=== PATIENT | female | born 1995 | race American Indian/Alaskan Native ===

== ENCOUNTER 2021-06-06 18:58 | Outpatient (CLI) | payer OTHER ==
[2021-06-06 19:54] VITALS: BP 110/58
--- NOTE | 2021-06-06 21:21 | Ultrasound Report ---
Limited obstetrical ultrasound INDICATION: Assessment of amniotic fluid, gestational age, cervix, weight, placenta COMPARISON: None FINDINGS: Intrauterine is seen in a cephalic position. Cardiac activity was documented with heart rate of 151 bpm period placenta is posterior and free of the internal cervical os. Amnio tic fluid volume appears qualitatively within normal limits and MIKAELA is within normal limits at 18.3 c m. Cervix is closed and cervical length is measured at 3.1 cm.: Survey was not performed but no obvio us abnormalities are noted. Estimated gestational age is 24 weeks 6 days. Clinical gestational age is not known. Estimated weight is 700 g +/- 104 g. BIOPHYSICAL PROFILE breathing movements: 2/2 movements: 2/2 posture and tone tone: 2/2 Qualitative amniotic fluid volume: 2/2 Total score: 8/8, within normal limits Signer Name: Kennedy Rushing MD Signed: 06/06/2021 9:17 PM Workstation Name: [id number]
== END 2021-06-06 21:33 | disposition home or self-care (01) ==
LOC: TRG 18:58 → APU 19:00 → TRG 21:33 → APU 22:59
PROVIDERS: ATTEND Obstetrics & Gynecology
DX: O26.899 Other specified pregnancy related conditions, unspecified trimester (principal); R10.9 Unspecified abdominal pain; Z3A.00 Weeks of gestation of pregnancy not specified
CPT/HCPCS: 59025; 76816; 76819

== ENCOUNTER 2021-09-19 01:46 | Inpatient (IN) | payer OTHER ==
[2021-09-19] MEDS ORDERED: miSOPROStol 200 MCG TAB PR PRN (02:14)
[2021-09-19] MEDS ORDERED: ONDANSETRON 4 MG/2 ML INJ IV PRN ×2 (02:14→10:00)
[2021-09-19] MEDS ORDERED: MINERAL OIL 30 ML ORAL LIQD PO PRN (02:14)
[2021-09-19] MEDS ORDERED: METHYLERGONOVINE MALEATE 0.2 MG/ML VIAL IM PRN ×2 (02:14→10:00)
[2021-09-19] MEDS ORDERED: CARBOPROST TROMETHAMINE 250 MCG/1 ML INJ IM PRN ×2 (02:14→10:00)
[2021-09-19] MEDS ORDERED: BUTORPHANOL 2 MG/1 ML INJ IV PRN ×4 (02:14→08:26)
[2021-09-19] MEDS ORDERED: AMPICILLIN/NS 2 GM/100 ML 2 GM/100 ML BAG IV ONE (02:14)
[2021-09-19] MEDS ORDERED: fentaNYL 100 MCG/2 ML INJ IV PRN ×2 (02:14→08:26)
[2021-09-19] MEDS ORDERED: ePHEDrine SULFATE 50 MG/1 ML INJ IV PRN ×2 (02:14→03:50)
[2021-09-19] MEDS ORDERED: LOPERAMIDE 2 MG CAP PO PRN ×2 (02:14→10:00)
[2021-09-19] MEDS ORDERED: OXYTOCIN 10 UNIT/1 ML INJ IM PRN (02:14)
[2021-09-19] MEDS ORDERED: ACETAMINOPHEN 325 MG TAB PO PRN ×3 (02:14→10:00)
[2021-09-19] MEDS ORDERED: TERBUTALINE 1 MG/1 ML INJ SUB-Q PRN ×2 (02:14→10:00)
[2021-09-19] MEDS ORDERED: LIDOCAINE (2%) 20 MG/1 ML VIAL 20 ML MDV INFILTRATI ONE (02:14)
[2021-09-19] MEDS ORDERED: LACTATED RINGERS 1,000 ML IV SCH ×2 (02:15→08:30)
[2021-09-19] MEDS ORDERED: OXYTOCIN DRIP 30 UNITS/500 ML BAG IV SCH ×2 (03:00)
[2021-09-19 03:09] LABS: Hemoglobin 11.1 gm/dl (10.1-14.3); Mean Corpuscular HGB Conc 33 % (30-34); Mean Corpuscular Volume 91 fl (79-97); Platelet Count 192 K/mm3 (140-440); Red Blood Count 3.73 M/mm3 (3.65-5.03); Red Cell Distribution Width 14.5 % (13.2-15.2)
[2021-09-19] MEDS ORDERED: NALOXONE 2 MG/2 ML INJ IV PRN (03:50)
[2021-09-19] MEDS ORDERED: fentaNYL-BUPIV 2 MCG/ML-0.125% 200 MCG/100 ML BAG EPIDURAL SCH (04:00)
--- NOTE | 2021-09-19 04:42 | Anesthesia Consultation ---
Anesthesia Consult and Med Hx Date of service: 09/19/21 - Airway Anesthetic Teeth Evaluation: Poor Mental/Hyoid Distance: Adequate Mallampati Class: Class II Intubation Access Assessment: Good - Pulmonary Exam CTA: Yes - Cardiac Exam Cardiac Exam: RRR - Pre-Operative Health Status ASA Pre-Surgery Classification: ASA2 Proposed Anesthetic Plan: Epidural - Pulmonary Hx Smoking: No Hx Asthma: No Hx Respiratory Symptoms: No SOB: No COPD: No Home Oxygen Therapy: No Hx Pneumonia: No Hx Sleep Apnea: No - Cardiovascular System Hx Hypertension: No Hx Coronary Artery Disease: No Hx Heart Attack/AMI: No Hx Angina: No Hx Percutaneous Transluminal Coronary Angioplasty (PTCA): No Hx Cardia Arrhythmia: No Hx Pacemaker: No Hx Internal Defibrillator: No Hx Valvular Heart Disease: No Hx Heart Murmur: No Hx Peripheral Vascular Disease: No - Central Nervous System Hx Neuromuscular Disorder: No Hx Seizures: No CVA: No Hx Back Pain: Yes Hx Psychiatric Problems: No - Gastrointestinal Hx Ulcer: No Hx Gastroesophageal Reflux Disease: No - Endocrine Hx Renal Disease: No Hx End Stage Renal Disease: No Hx Cirrhosis: No Hx Liver Disease: No Hx Insulin Dependent Diabetes: No Hx Non-Insulin Dependent Diabetes: No Hx Thyroid Disease: No Hx Hypothyroidism: No Hx Hyperthyroidism: No - Hematic Hx Anemia: No Hx Sickle Cell Disease: No - Other Systems Hx Alcohol Use: No Hx Substance Use: No Hx Cancer: No Hx Obesity: Yes
--- NOTE | 2021-09-19 04:43 | Progress Note ---
Labor Epidural - Labor Epidural Start Time: 04:11 Stop Time: 04:13 Performed by:: BRITTANI ROCHA Procedure: Patient is requesting a laboring epidural for laboring pain. Patient IDed, H&P reviewed, all questions and concerns were answered, and consent was signed. Timeout was performed at bedside. Patient in sitting position. Sterile prep and drape was performed. [3] ml of 1% lidocaine skin wheal at L[3]- L [4]. 17- gauge Tuohy epidural needle was advanced to loss of resistance with saline technique 7cm. Negative CSF negative blood. Epidural catheter advanced to [10] centimeters. [NEGATIVE] Aspiration [NEGATIVE] test dose. Sterile dressing applied. Patient tolerated procedure.
--- NOTE | 2021-09-19 09:02 | History and Physical Report ---
History of Present Illness Date of examination: 09/19/21 Date of admission: 09/19/21 02:14 Chief complaint: CTX History of present illness: 26 y/o at 40-5/7 weeks presents to OB ED reporting CTX. No VB or LOF. Good FM. In OB ED, SOO wsa 4 cm dilated. She is GBS (+). 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 Family/Genetic History: none Social history: no significant social history - Obstetrical History Expected Date of Delivery: 09/14/21 Actual Gestation: 40 Week(s) 5 Day(s) : 2 Para: 1 Medications and Allergies Allergies Allergy/AdvReac Type Severity Reaction Status Date / Time No Known Allergies Allergy Unverified 06/06/21 19:53 Home Medications Medication Instructions Recorded Confirmed Last Taken Type No Known Home Medications [No 06/06/21 06/06/21 Unknown History Reported Home Medications] Active Meds: Active Medications Acetaminophen (Acetaminophen 325 Mg Tab) 650 mg PO Q4H PRN PRN Reason: Pain, Mild (1-3) Butorphanol Tartrate (Butorphanol 2 Mg/1 Ml Inj) 1 mg IV Q2H PRN PRN Reason: Pain, Moderate(4-6) LABOR PAIN Butorphanol Tartrate (Butorphanol 2 Mg/1 Ml Inj) 2 mg IV Q2H PRN PRN Reason: Pain , Severe (7-10) Carboprost Tromethamine (Carboprost Tromethamine 250 Mcg/1 Ml Inj) 250 mcg IM ONCE PRN PRN Reason: Uterine Bleeding Carboprost Tromethamine (Carboprost Tromethamine 250 Mcg/1 Ml Inj) 250 mcg IM ONCE PRN PRN Reason: Uterine Bleeding Ephedrine Sulfate (Ephedrine Sulfate 50 Mg/1 Ml Inj) 10 mg IV Q2M PRN PRN Reason: Hypotension Fentanyl (Fentanyl 100 Mcg/2 Ml Inj) 100 mcg IV Q2H PRN PRN Reason: Pain,Severe (7-10) LABOR PAIN Last Admin: 09/19/21 02:53 Dose: 100 mcg Documented by: Oxytocin/Sodium Chloride (Pitocin/Ns 30 Unit/500ml) 30 units in 500 mls @ 2 mls/hr IV TITR RENE; Protocol Lactated Ringer's (Lactated Ringers) 1,000 mls @ 125 mls/hr IV DIRECT RENE Last Admin: 09/19/21 02:54 Dose: 125 mls/hr Documented by: Oxytocin/Sodium Chloride (Pitocin/Ns 30 Unit/500ml) 30 units in 500 mls @ 40 mls/hr IV TITR RENE; Protocol Fentanyl/Bupivacaine/Sodium Chlor (Fentanyl-Bupiv 2 Mcg/Ml-0.125%) 200 mcg in 100 mls @ 12 mls/hr EPIDURAL TITR RENE; Protocol Lactated Ringer's (Lactated Ringers) 1,000 mls @ 125 mls/hr IV DIRECT RENE Lidocaine (Lidocaine (2%) 20 Mg/1 Ml Vial 20 Ml Mdv) 20 ml INFILTRATI ONCE ONE Stop: 09/19/21 08:27 Loperamide HCl (Loperamide 2 Mg Cap) 2 mg PO ONCE PRN PRN Reason: give with Hemabate Loperamide HCl (Loperamide 2 Mg Cap) 2 mg PO ONCE PRN PRN Reason: give with Hemabate Methylergonovine Maleate (Methylergonovine Maleate 0.2 Mg/Ml Vial) 0.2 mg IM ONCE PRN PRN Reason: Uterine Bleeding Methylergonovine Maleate (Methylergonovine Maleate 0.2 Mg/Ml Vial) 0.2 mg IM ONCE PRN PRN Reason: Uterine Bleeding Mineral Oil (Mineral Oil 30 Ml Oral Liqd) 30 ml PO QHS PRN PRN Reason: Constipation Misoprostol (Misoprostol 200 Mcg Tab) 800 mcg NC ONCE PRN PRN Reason: Uterine Bleeding Nalbuphine HCl (Nalbuphine 10 Mg/1 Ml Inj) 10 mg IV Q2H PRN PRN Reason: Pain, Moderate (4-6) Naloxone HCl (Naloxone 2 Mg/2 Ml Inj) 0.2 mg IV Q5M PRN PRN Reason: Respiratory sedation Ondansetron HCl (Ondansetron 4 Mg/2 Ml Inj) 4 mg IV Q8H PRN PRN Reason: Nausea And Vomiting Oxytocin (Oxytocin 10 Unit/1 Ml Inj) 10 unit IM ONCE PRN PRN Reason: Uterine Bleeding Terbutaline Sulfate (Terbutaline 1 Mg/1 Ml Inj) 0.25 mg SUB-Q ONCE PRN PRN Reason: Hyperstimulation/Hypertonicity Terbutaline Sulfate (Terbutaline 1 Mg/1 Ml Inj) 0.25 mg SUB-Q ONCE PRN PRN Reason: Hyperstimulation/Hypertonicity Review of Systems All systems: negative - Vital Signs Vital signs: Vital Signs Temp Pulse Resp BP Pulse Ox 99.1 F 80 12 124/62 100 09/19/21 01:54 09/19/21 01:54 09/19/21 01:54 09/19/21 01:54 09/19/21 01:54 Temp Pulse Resp BP Pulse Ox 99.1 F 82 12 104/53 100 09/19/21 01:54 09/19/21 08:56 09/19/21 01:54 09/19/21 08:53 09/19/21 08:56 - Physical Exam Breasts: Positive: normal Cardiovascular: Regular rate Lungs: Positive: Normal air movement Abdomen: Positive: normal appearance Genitourinary (Female): Positive: normal external genitalia Vulva: both: normal Vagina: Positive: normal moisture Uterus: Positive: enlarged Adnexa: both: normal Anus/Rectum: Positive: normal perianal skin Extremities: Positive: normal - Obstetrical FHR: category 1 Uterine Contraction Monitor Mode: Palpation Cervical Dilatation: 4 Results Result Diagrams: 09/19/21 02:36 All other labs normal. Assessment and Plan - Patient Problems (1) Active labor at term Current Visit: Yes Status: Acute Plan to address problem: Admit to L&D. AROM when possible. I expect .
--- NOTE | 2021-09-19 09:04 | Procedure Note ---
OB Delivery Note - Delivery Date of Delivery: 09/19/21 Surgeon: ANN INGRAM Estimated blood loss: 500cc - Vaginal Delivery position: OA Intrapartum events: none Delivery augmentation: rupture of membranes Delivery monitor: external FHT Route of delivery: Delivery cord: nuchal cord Delivery laceration: 2nd degree Delivery repair: vicryl Anesthesia: epidural - Infant A at 1 minute: 9 at 5 minutes: 9 Infant Gender: Male
[2021-09-19 09:55] LABS: Hematocrit 33.5 % (30.3-42.9); Hemoglobin 10.6 gm/dl (10.1-14.3); Mean Corpuscular HGB Conc 32 % (30-34); Mean Corpuscular Volume 92 fl (79-97); Platelet Count 182 K/mm3 (140-440); Red Blood Count 3.64 M/mm3 (3.65-5.03); Red Cell Distribution Width 14.1 % (13.2-15.2)
[2021-09-19] MEDS ORDERED: diphenhydrAMINE 25 MG CAP PO PRN (10:00)
[2021-09-19] MEDS ORDERED: WITCH HAZEL/ GLYCERIN PAD TP PRN (10:00)
[2021-09-19] MEDS ORDERED: LANOLIN/ZINC/DIMETHICONE (LANSINOH) 7 GM TP PRN (10:00)
[2021-09-19] MEDS ORDERED: PROMETHAZINE 25 MG RECT SUPP PR PRN (10:00)
[2021-09-19] MEDS ORDERED: LIDOCAINE (2%) 20 MG/1 ML VIAL 20 ML MDV INFILTRATI SCH (10:00)
[2021-09-19] MEDS ORDERED: HYDROcodone/ACETAMINOPHEN 5-325 MG TAB PO PRN (10:00)
[2021-09-19] MEDS ORDERED: PROMETHAZINE 25 MG TAB PO PRN (10:00)
[2021-09-19] MEDS ORDERED: NalbUPHINE 10 MG/1 ML INJ IV PRN (10:00)
--- NOTE | 2021-09-19 11:38 | Post Anesthesia Evaluation ---
- Post Anesthesia Evaluation Patient Participated: Yes Airway Patent: Yes Stable Respiratory Function: Yes Nausea/Vomiting: No Temp > 96.8F: Yes Pain Manageable: Yes Adequeate Hydration: Yes Anesthesia Complications: No Block Receding Appropriately: Yes Patient on Ventilator: No
[2021-09-19] MEDS: IBUPROFEN 600 MG TAB PO SCH (15:02)
[2021-09-19] MEDS ORDERED: MAGNESIUM HYDROXIDE (MOM) ORAL LIQD UDC PO PRN (22:00)
[2021-09-20] MEDS: IBUPROFEN 600 MG TAB PO SCH ×4 (00:10→21:35)
--- NOTE | 2021-09-20 06:03 | Progress Note ---
Assessment and Plan PPD#1 doing well 1. Routine care 2. Discharge pt home tomorrow. Subjective Date of service: 09/20/21 Principal diagnosis: PPD#1 Interval history: Pt has no complaints. Vag bleed less than a period. Pt is bottle feeding. Pt voids without difficulty Objective - Constitutional Vitals: Vital Signs - 12hr 09/19/21 09/19/21 09/19/21 19:15 22:02 23:30 Temperature 98.6 F Pulse Rate 76 Respiratory 18 Rate Blood Pressure 109/70 O2 Sat by Pulse 99 Oximetry O2 Sat by Pulse 98 98 Oximetry [ Anterior Bilateral] 09/20/21 01:01 Temperature 98.6 F Pulse Rate 92 H Respiratory 18 Rate Blood Pressure 118/74 O2 Sat by Pulse 98 Oximetry O2 Sat by Pulse Oximetry [ Anterior Bilateral] General appearance: Present: no acute distress - Respiratory Respiratory effort: normal - Breasts Breasts: normal Extremities: No edema - Gastrointestinal General gastrointestinal: Present: soft, non-tender - Genitourinary Female genitourinary: other (Fundus 1cm below umbilicus, non-tender; lochia small) - Neurologic Neurologic: moves all extremities - Psychiatric Psychiatric: cooperative - Labs CBC & Chem 7: 09/19/21 09:06 Labs: Abnormal lab results 09/19/21 Range/Units 09:06 WBC 13.2 H (4.5-11.0) K/mm3 RBC 3.64 L (3.65-5.03) M/mm3 Medications & Allergies - Medications Allergies/Adverse Reactions: Allergies No Known Allergies Allergy (Unverified 06/06/21 19:53) Home Medications: Home Medications Medication Instructions Recorded Confirmed Last Taken Type No Known Home Medications [No 06/06/21 06/06/21 Unknown History Reported Home Medications] Active Medications: Generic Name Dose Route Start Last Admin Trade Name Freq PRN Reason Stop Dose Admin Acetaminophen 650 mg 09/19/21 10:00 Acetaminophen 325 Mg Tab PO Q4H PRN Pain MILD(1-3)/Fever >100.5/BARRAZA Hydrocodone Bitart/Acetaminophen 2 each 09/19/21 10:00 09/19/21 17:11 Hydrocodone/Acetaminophen 5-325 Mg Tab PO 2 each Q6H PRN Administration Pain, Moderate (4-6) Bisacodyl 10 mg 09/19/21 10:00 Bisacodyl 10 Mg Rect Supp [place] BID PRN Constipation Carboprost Tromethamine 250 mcg 09/19/21 10:00 Carboprost Tromethamine 250 Mcg/1 Ml Inj IM ONCE PRN Uterine Bleeding Diphenhydramine HCl 25 mg 09/19/21 10:00 Diphenhydramine 25 Mg Cap PO Q6H PRN Itching Ephedrine Sulfate 10 mg 09/19/21 02:14 Ephedrine Sulfate 50 Mg/1 Ml Inj IV Q2M PRN Hypotension Oxytocin/Sodium Chloride 30 units in 500 mls @ 40 mls/hr 09/19/21 03:00 Pitocin/Ns 30 Unit/500ml IV TITR [facility] Protocol Fentanyl/Bupivacaine/Sodium Chlor 200 mcg in 100 mls @ 12 mls/hr 09/19/21 04:00 Fentanyl-Bupiv 2 Mcg/Ml-0.125% EPIDURAL TITR [facility] Protocol Lactated Ringer's 1,000 mls @ 125 mls/hr 09/19/21 08:30 Lactated Ringers IV DIRECT RENE Ibuprofen 600 mg 09/19/21 10:00 09/20/21 00:10 Ibuprofen 600 Mg Tab PO 600 mg Q6H RENE Administration Lidocaine 20 ml 09/19/21 10:00 Lidocaine (2%) 20 Mg/1 Ml Vial 20 Ml Mdv INFILTRATI 09/20/21 09:59 ONCE@1000 RENE Loperamide HCl 2 mg 09/19/21 10:00 Loperamide 2 Mg Cap PO ONCE PRN give with Hemabate Magnesium Hydroxide 30 ml 09/19/21 22:00 Magnesium Hydroxide (Mom) Oral Liqd Udc PO HS PRN Constipation Methylergonovine Maleate 0.2 mg 09/19/21 10:00 Methylergonovine Maleate 0.2 Mg/Ml Vial IM ONCE PRN Uterine Bleeding Misoprostol 800 mcg 09/19/21 02:14 Misoprostol 200 Mcg Tab [place] ONCE PRN Uterine Bleeding Multi-Ingredient Ointment 1 applic 09/19/21 10:00 Lanolin/Zinc/Dimethicone (Lansinoh) 7 Gm TP PRN PRN Sore Nipples Naloxone HCl 0.2 mg 09/19/21 03:50 Naloxone 2 Mg/2 Ml Inj IV Q5M PRN Respiratory sedation Ondansetron HCl 4 mg 09/19/21 10:00 Ondansetron 4 Mg/2 Ml Inj IV Q8H PRN Nausea And Vomiting Oxytocin 10 unit 09/19/21 02:14 Oxytocin 10 Unit/1 Ml Inj IM ONCE PRN Uterine Bleeding Promethazine HCl 25 mg 09/19/21 10:00 Promethazine 25 Mg Rect Supp [place] Q6H PRN Nausea And Vomiting Promethazine HCl 25 mg 09/19/21 10:00 Promethazine 25 Mg Tab PO Q6H PRN Nausea And Vomiting Sodium Chloride 10 ml 09/19/21 10:00 Sodium Chloride 0.9% 10 Ml Flush Syringe IV PRN PRN flush Witch Sheyla/Glycerin 1 each 09/19/21 10:00 Witch Sheyla/ Glycerin Pad TP PRN PRN Hemorrhoid/cleansing/soothing
[2021-09-20] MEDS ORDERED: FLU VACC QUAD 2021-22(6MOS UP)/PF 60 MCG/0.5 ML SYRINGE IM ONE (12:00)
[2021-09-21] MEDS: IBUPROFEN 600 MG TAB PO SCH ×2 (04:20→10:40)
--- NOTE | 2021-09-21 10:34 | Progress Note ---
Assessment and Plan A: day 2 S/P . P: Discharge patient home today. Discussed with patient discharge instructions and warning signs. Advised patient to continue to take her vitamins and iron supplements at home. Advised patient to avoid intercourse, lifting, housework, driving. Advised patient to follow up at [facility] office in 6 weeks. Patient voiced uderstanding of all instructions. Subjective - Subjective Date of service: 09/21/21 Principal diagnosis: PPD#2 Interval history: Patient desires discharge home today. Patient reports: appetite normal, voiding normally, pain well controlled, flatus, no dizzy ambulation [place]: doing well Objective - Vital Signs Latest vital signs: Vital Signs Temp Pulse Resp BP Pulse Ox Pulse Ox 09/21/21 08:41 98.2 F 88 18 121/53 98 09/21/21 02:34 97.8 F 80 16 116/71 100 09/20/21 21:30 100 09/20/21 16:35 98 09/20/21 16:27 98.3 F 77 18 113/64 100 09/20/21 14:30 98 09/20/21 12:30 98 Intake and Output 09/20/21 09/21/21 09/21/21 23:59 07:59 15:59 Intake Total 360 200 Balance 360 200 Intake: Oral 200 Intake, Free Water 360 Other: Total, Intake Amount 200 # Voids Void 3 2 1 - Exam Cardiovascular: Present: Regular rate Lungs: Present: Clear to auscultation Abdomen: Present: normal appearance, soft, normal bowel sounds. Absent: distention, tenderness, guarding, rigidity Uterus: Present: normal, firm, other (Fundus firm at 1 FB below umbilicus). Absent: bogginess, tenderness Extremities: Absent: tenderness, edema
--- NOTE | 2021-09-21 10:39 | Discharge Summary ---
Providers - Providers Date of Admission: 09/19/21 02:14 Date of discharge: 09/21/21 Attending physician: ANN INGRAM MD Primary care physician: ANN INGRAM MD Hospitalization Reason for admission: active labor Delivery: Laceration: 2nd degree Other procedures: none complications: none Discharge diagnosis: IUP at term delivered [place] baby: male Pertinent studies: Labs Hospital course: Uncomplicated hospital course Condition at discharge: Good Disposition: 01 HOME / SELF CARE / HOMELESS - Discharge Diagnoses (1) Term delivered Status: Acute Plan - Provider Discharge Summary Activity: routine, no sex for 6 weeks, no heavy lifting 4 weeks, no strenuous exercise Diet: routine Instructions: routine Additional instructions: Continue taking your vitamin and iron supplements at home. Follow up at [facility] office in 6 weeks. Call your doctor immediately for: * Fever > 100.5 * Heavy vaginal bleeding ( >1 pad per hour) * Severe persistent headache * Shortness of breath * Reddened, hot, painful area to leg or breast - Follow up plan Follow up: PRIMARY CARE, [Referring] - 6 Weeks
[2021-09-21 17:05] VITALS: BP 121/77
== END 2021-09-21 16:45 | disposition home or self-care (01) | DRG 807 ==
LOC: TRG 01:46 → APU 01:58 → OBSVTOIN 02:14 → LD 02:14 → TRG 02:14 → LD 02:24 → OB 10:38
PROVIDERS: ADMIT Obstetrics & Gynecology Gynecology; ATTEND Obstetrics & Gynecology Gynecology
PROC: 10E0XZZ Delivery of Products of Conception, External Approach (ICD-10-PCS; principal; 2021-09-19)
PROC: 0KQM0ZZ Repair Perineum Muscle, Open Approach (ICD-10-PCS; 2021-09-19)
PROC: 3E0R3BZ Introduction of Anesthetic Agent into Spinal Canal, Percutaneous Approach (ICD-10-PCS; 2021-09-19)
PROC: 00HU33Z Insertion of Infusion Device into Spinal Canal, Percutaneous Approach (ICD-10-PCS; 2021-09-19)
DX: O69.81X0 Labor and delivery complicated by cord around neck, without compression, not applicable or unspecified (principal); Z37.0 Single live birth; Z3A.40 40 weeks gestation of pregnancy; O99.824 Streptococcus B carrier state complicating childbirth; Z20.822 Contact with and (suspected) exposure to COVID-19; O70.1 Second degree perineal laceration during delivery
CPT/HCPCS: 36415; 59025; 85014; 85018; 85027; 86592; 86706; 86762; 86850; 86900; 86901; 90686; G0378; J0290; J3010; J7120; U0003